=== PATIENT | male | born 1950 | race Hispanic/Latino ===

== ENCOUNTER 2021-08-07 06:51 | Day surgery (SDC) | payer OTHER ==
[2021-08-05 14:12] LABS: BASOPHILS % (AUTO) 0.8 % (0.0-5.0); EOSINOPHILS % (AUTO) 2.5 % (0.0-8.0); HEMATOCRIT 39.2 % (42-54); LYMPHOCYTES % (AUTO) 24.1 % (21.0-51.0); MEAN CORPUSCULAR HEMOGLOBIN 30.2 pg (27.0-33.0); MEAN CORPUSCULAR HGB CONC 33.4 g/dL (32.0-36.0); MEAN CORPUSCULAR VOLUME 90.3 fL (79-99); MONOCYTES % (AUTO) 6.7 % (3.0-13.0); NEUTROPHILS % (AUTO) 64.9 % (40.0-77.0); PLATELET COUNT (AUTO) 198 K/uL (130-400); RED BLOOD CELL COUNT(AUTO) 4.34 MIL/uL (4.50-6.20); RED CELL DISTRIBUTION WIDTH 13.5 % (11.0-15.5)
[2021-08-05 14:18] LABS: CREATININE 1.2 mg/dL (0.5-1.5); POTASSIUM 5.2 mmol/L (3.5-5.1)
[2021-08-05 14:21] LABS: INR 0.99 (0.85-1.15); PROTHROMBIN TIME 10.8 SEC (9.6-11.6)
[2021-08-05 14:23] LABS: APPEARANCE,URINE Clear (CLEAR); BILIRUBIN,URINE Negative (NEGATIVE); COLOR,URINE Yellow (YELLOW); GLUCOSE, URINE (UA) 500 mg/dL (NEGATIVE); KETONES,URINE Negative (NEGATIVE); LEUKOCYTE ESTERASE ,URINE Negative (NEGATIVE); NITRATE,URINE Negative (NEGATIVE); OCCULT BLOOD,URINE Negative (NEGATIVE); PH,URINE 5.5 (5.0-8.0); PROTEIN,URINE Negative (NEGATIVE); UROBILINOGEN,URINE 0.2 mg/dL (0.2-1.0)
[2021-08-05 14:23] LABS: PARTIAL THROMBOPLASTIN TIME 26.1 SEC (26.3-35.5)
[2021-08-05 14:31] LABS: BACTERIA,URINE Rare /HPF (None Seen); RBC,URINE 0-1 /HPF (0-1); SQUAMOUS EPITHELIAL CELL,UR Rare /HPF (0-2); WBC,URINE 0-1 /HPF (0-1)
[2021-08-05 14:41] LABS: B-TYPE NATRIURETIC PEPTIDE 7 pg/mL (0-100)
[~2021-08-07] VITALS: Ht 167.6 cm; Wt 82.6 kg
[2021-08-07] VITALS (8 sets, daily range): BP systolic 146–170; BP diastolic 75–84
[~2021-08-07 06:51] MED LIST: 0.9% NACL 500ML IV.SOLN 500 ML IV SCH; ASPI-1443 PO; ATOR-2 PO; CILO100T PO; GLIP5TAB11 PO; LEVE500T19 PO; LINA5TAB PO; LOSA100T58 PO; METO100T14 PO
[2021-08-07] MEDS ORDERED: 0.9%NACL 1000ML 1,000 ML IV ONE (07:58)
[2021-08-07] MEDS ORDERED: NICARDIPINE 25MG INJ IV ONE (09:08)
[2021-08-07] MEDS ORDERED: MIDAZOLAM HCL 1 MG/ML 2ML VIAL ONE (09:09)
[2021-08-07] MEDS ORDERED: FENTANYL CITRATE PF 50 MCG/1 ML 2ML VIAL ONE (09:09)
[2021-08-07] MEDS ORDERED: NITROGLYCERIN 50MG VIAL ONE (09:09)
[2021-08-07] MEDS ORDERED: IODIXANOL 320 MG/ML 100 ML VIAL ONE (09:11)
[2021-08-07] MEDS ORDERED: HEPARIN 10,000 UNIT/10ML (1,000 UNIT/ML) VIAL ONE (09:18)
[2021-08-07] MEDS ORDERED: DEXTROSE 50%-WATER 50 ML DISP.SYRIN IV PRN (10:30)
[2021-08-07] MEDS ORDERED: GLUCAGON 1MG KIT 1 MG ML IM PRN (10:30)
[2021-08-07] MEDS ORDERED: IOHEXOL 350 MG/ML 100ML INFUS..BTL IV ONE (12:00)
[2021-08-07] MEDS ORDERED: IOHEXOL-350 50ML VIAL IV ONE (12:01)
== END 2021-08-07 14:40 | disposition home or self-care (01) ==
LOC: DAH 06:51
PROVIDERS: ATTEND Internal Medicine Cardiovascular Disease
DX: I70.238 Atherosclerosis of native arteries of right leg with ulceration of other part of lower leg (principal); E11.51 Type 2 diabetes mellitus with diabetic peripheral angiopathy without gangrene; I70.92 Chronic total occlusion of artery of the extremities; I10 Essential (primary) hypertension; E78.5 Hyperlipidemia, unspecified; G40.909 Epilepsy, unspecified, not intractable, without status epilepticus; Z79.01 Long term (current) use of anticoagulants; Z79.899 Other long term (current) drug therapy; Z98.890 Other specified postprocedural states; Z82.49 Family history of ischemic heart disease and other diseases of the circulatory system; Z98.49 Cataract extraction status, unspecified eye
CPT/HCPCS: 36140; 36415; 71045; 75635; 75710; 80048; 81001; 82948 ×2; 83880; 85025; 85610; 85730; 93005; A4215; A4216; A4221; A4222; A4223 ×3; A4606; A4663; C1769; C1894 ×2; J1644; J2250; J3010; J3490 ×2; J7030; Q9967 ×3; 99156; 99157

== ENCOUNTER 2021-08-25 05:30 | Day surgery (SDC) | payer OTHER ==
[2021-08-21 11:25] VITALS: BP 150/70
[2021-08-21 11:34] LABS: BASOPHILS % (AUTO) 0.9 % (0.0-5.0); EOSINOPHILS % (AUTO) 2.4 % (0.0-8.0); HEMATOCRIT 37.5 % (42-54); LYMPHOCYTES % (AUTO) 18.9 % (21.0-51.0); MEAN CORPUSCULAR HEMOGLOBIN 30.4 pg (27.0-33.0); MEAN CORPUSCULAR HGB CONC 33.3 g/dL (32.0-36.0); MEAN CORPUSCULAR VOLUME 91.2 fL (79-99); MONOCYTES % (AUTO) 6.9 % (3.0-13.0); NEUTROPHILS % (AUTO) 69.9 % (40.0-77.0); PLATELET COUNT (AUTO) 223 K/uL (130-400); RED BLOOD CELL COUNT(AUTO) 4.11 MIL/uL (4.50-6.20); RED CELL DISTRIBUTION WIDTH 13.9 % (11.0-15.5); WHITE BLOOD COUNT (AUTO) 8.9 K/uL (4.8-10.8)
[2021-08-21 11:41] LABS: CREATININE 1.3 mg/dL (0.5-1.5); POTASSIUM 4.8 mmol/L (3.5-5.1)
[2021-08-21 11:43] LABS: INR 0.97 (0.85-1.15); PROTHROMBIN TIME 10.6 SEC (9.6-11.6)
[2021-08-21 11:45] LABS: PARTIAL THROMBOPLASTIN TIME 26.8 SEC (26.3-35.5)
[2021-08-21 12:01] LABS: APPEARANCE,URINE CLEAR (CLEAR); BILIRUBIN,URINE NEGATIVE (NEGATIVE); COLOR,URINE YELLOW (YELLOW); GLUCOSE, URINE (UA) NEGATIVE (NEGATIVE); KETONES,URINE 5 mg/dL (NEGATIVE); LEUKOCYTE ESTERASE ,URINE NEGATIVE (NEGATIVE); NITRATE,URINE NEGATIVE (NEGATIVE); OCCULT BLOOD,URINE NEGATIVE (NEGATIVE); PROTEIN,URINE TRACE mg/dL (NEGATIVE); UROBILINOGEN,URINE 0.2 mg/dL (0.2-1.0)
[2021-08-21 12:05] LABS: B-TYPE NATRIURETIC PEPTIDE 19 pg/mL (0-100)
[2021-08-21 12:17] LABS: BACTERIA,URINE Few /HPF (None Seen); RBC,URINE 0-1 /HPF (0-1); WBC,URINE 0-1 /HPF (0-1)
[~2021-08-25] VITALS: Ht 167.6 cm; Wt 83.4 kg
[2021-08-25] VITALS (20 sets, daily range): BP systolic 117–164; BP diastolic 54–89
[2021-08-25] MEDS ORDERED: 0.9%NACL 1000ML 1,000 ML IV ONE (06:39)
[2021-08-25] MEDS ORDERED: NITROGLYCERIN 50MG VIAL ONE (07:12)
[2021-08-25] MEDS ORDERED: IODIXANOL 320 MG/ML 100 ML VIAL ONE (07:12)
[2021-08-25] MEDS ORDERED: HEPARIN 10,000 UNIT/10ML (1,000 UNIT/ML) VIAL ONE ×2 (07:12→09:35)
[2021-08-25] MEDS ORDERED: LIDOCAINE HCL 400MG/20ML VIAL ONE ×2 (07:13→08:05)
[2021-08-25] MEDS ORDERED: MIDAZOLAM HCL 1 MG/ML 2ML VIAL ONE ×2 (07:24→09:57)
[2021-08-25] MEDS ORDERED: FENTANYL CITRATE PF 50 MCG/1 ML 2ML VIAL ONE (07:24)
[2021-08-25] MEDS ORDERED: CLOPIDOGREL 300MG TAB ONE (08:31)
[2021-08-25] MEDS ORDERED: NICARDIPINE 25MG INJ IV ONE ×2 (08:41→08:46)
[2021-08-25] MEDS ORDERED: ADENOSINE 90MG VIAL IV ONE (10:13)
[2021-08-25] MEDS ORDERED: ADENOSINE 6MG VIAL IV ONE (10:14)
[2021-08-25] MEDS ORDERED: DEXTROSE 50%-WATER 50 ML DISP.SYRIN IV PRN (11:00)
[2021-08-25] MEDS ORDERED: 0.9%NACL 1000ML 1,000 ML IV SCH (11:00)
[2021-08-25] MEDS ORDERED: GLUCAGON 1MG KIT 1 MG ML IM PRN (11:00)
== END 2021-08-25 16:55 | disposition home or self-care (01) ==
LOC: DAH 05:30
PROVIDERS: ATTEND Internal Medicine Cardiovascular Disease
DX: I70.238 Atherosclerosis of native arteries of right leg with ulceration of other part of lower leg (principal); E11.51 Type 2 diabetes mellitus with diabetic peripheral angiopathy without gangrene; I10 Essential (primary) hypertension; E78.5 Hyperlipidemia, unspecified; G40.909 Epilepsy, unspecified, not intractable, without status epilepticus; Z82.49 Family history of ischemic heart disease and other diseases of the circulatory system; Z98.49 Cataract extraction status, unspecified eye; Z79.899 Other long term (current) drug therapy; Z79.82 Long term (current) use of aspirin; Z79.01 Long term (current) use of anticoagulants; Z98.890 Other specified postprocedural states
CPT/HCPCS: 36415; 71045; 75710; 80048; 81001; 82948 ×2; 83880; 85025; 85610; 85730; 93005; A4215; A4216; A4221; A4222; A4223 ×3; A4606; A4663; C1724 ×2; C1725; C1727 ×2; C1760; C1769 ×3; C1887; C1894 ×3; C9766; C9774; J0153; J1644 ×5; J2250 ×2; J3010; J3490 ×5; J7030; Q9967; 99156; 99157; C9767

== ENCOUNTER 2021-09-14 18:41 | Inpatient (IN) | payer OTHER ==
[~2021-09-14] VITALS: Ht 167.6 cm; Wt 86.1 kg
[~2021-09-14 18:41] MED LIST changes: -0.9% NACL 500ML IV.SOLN 500 ML IV SCH; -ASPI-1443 PO
[2021-09-14 19:17] LABS: BASOPHILS % (AUTO) 0.1 % (0.0-5.0); HEMATOCRIT 29.6 % (42-54); LYMPHOCYTES % (AUTO) 3.2 % (21.0-51.0); MEAN CORPUSCULAR HEMOGLOBIN 30.3 pg (27.0-33.0); MEAN CORPUSCULAR HGB CONC 34.5 g/dL (32.0-36.0); MEAN CORPUSCULAR VOLUME 87.8 fL (79-99); MONOCYTES % (AUTO) 5.1 % (3.0-13.0); NEUTROPHILS % (AUTO) 89.9 % (40.0-77.0); PLATELET COUNT (AUTO) 438 K/uL (130-400); RED BLOOD CELL COUNT(AUTO) 3.37 MIL/uL (4.50-6.20); RED CELL DISTRIBUTION WIDTH 12.7 % (11.0-15.5); WHITE BLOOD COUNT (AUTO) 20.9 K/uL (4.8-10.8)
[2021-09-14 19:26] LABS: CREATININE 3.9 mg/dL (0.5-1.5); POTASSIUM 3.8 mmol/L (3.5-5.1)
[2021-09-14 19:31] LABS: ALBUMIN 2.6 g/dL (3.5-5.0); TOTAL PROTEIN, SERUM 7.7 g/dL (6.0-8.3)
[2021-09-14 21:20] LABS: APPEARANCE,URINE SL CLOUDY (CLEAR); BILIRUBIN,URINE SMALL (NEGATIVE); COLOR,URINE AMBER (YELLOW); GLUCOSE, URINE (UA) 100 mg/dL (NEGATIVE); KETONES,URINE NEGATIVE (NEGATIVE); LEUKOCYTE ESTERASE ,URINE NEGATIVE (NEGATIVE); NITRATE,URINE NEGATIVE (NEGATIVE); OCCULT BLOOD,URINE NEGATIVE (NEGATIVE); PROTEIN,URINE 30 mg/dL (NEGATIVE); UROBILINOGEN,URINE 0.2 mg/dL (0.2-1.0)
[2021-09-14 21:29] LABS: BACTERIA,URINE None Seen /HPF (None Seen); RBC,URINE None Seen /HPF (0-1); WBC,URINE 0-1 /HPF (0-1)
[2021-09-14 21:30] LABS: AMORPHOUS SEDIMENT,UR Few /LPF (None Seen); SQUAMOUS EPITHELIAL CELL,UR Rare /HPF (0-2)
[2021-09-14 22:27] LABS: INR 1.01 (0.85-1.15)
[2021-09-14 22:29] LABS: PARTIAL THROMBOPLASTIN TIME 27.6 SEC (26.3-35.5)
[2021-09-14] MEDS ORDERED: GUAIFENESIN-DM 200/20 MG 10 ML PO PRN (22:30)
[2021-09-14] MEDS ORDERED: ACETAMINOPHEN 325 MG TAB PO PRN ×2 (22:30)
[2021-09-14] MEDS ORDERED: MAG/ALUM/SIMETH 30 ML UDCUP PO PRN (22:30)
[2021-09-14] MEDS ORDERED: ONDANSETRON 4MG INJ IV PRN (22:30)
[2021-09-14] MEDS ORDERED: ACETAMINOPHEN WITH CODEINE 1 TAB TAB PO PRN (22:30)
[2021-09-14 22:55] LABS: CREATININE 3.4 mg/dL (0.5-1.5); POTASSIUM 3.5 mmol/L (3.5-5.1)
[2021-09-14] MEDS ORDERED: DEXTROSE 50%-WATER 50 ML DISP.SYRIN IV PRN (23:30)
[2021-09-14] MEDS ORDERED: GLUCAGON 1MG KIT 1 MG ML IM PRN (23:30)
[2021-09-14] MEDS: 0.9%NACL 1000ML 1,000 ML IV SCH (23:31)
[2021-09-14 23:52] LABS: CHLORIDE,URINE RANDOM 40 mmol/L (110-250); POTASSIUM,URINE RANDOM 74 mmol/L (25-125); SODIUM,URINE RANDOM 32 mmol/l (40-220)
[2021-09-15] MEDS: 0.9%NACL 1000ML 1,000 ML IV SCH ×11 (00:01→14:35)
[2021-09-15] MEDS: HEPARIN 5,000 UNIT VIAL SQ SCH ×4 (00:01→21:13)
[2021-09-15] MEDS: LEVETIRACETAM 500 MG TABLET PO SCH ×2 (00:01→21:06)
[2021-09-15] MEDS: INSULIN HUMULIN R 100 UNIT/ML 3ML SQ SCH ×5 (01:00→21:14)
[2021-09-15] MEDS: ZOSYN 3.375GM +NS 50ML IV SCH ×2 (01:00→11:14)
[2021-09-15 01:33] LABS: ABG BASE EXCESS -3.6 mmol/L (-2.0-3.0); ABG HCO3 19.1 mmol/L (21.0-28.0); ABG PCO2 29 mmHg (35-48)
[2021-09-15 04:06] VITALS: BP 129/69
[2021-09-15 04:17] LABS: BASOPHILS % (AUTO) 0.1 % (0.0-5.0); HEMATOCRIT 28.4 % (42-54); LYMPHOCYTES % (AUTO) 4.7 % (21.0-51.0); MEAN CORPUSCULAR HEMOGLOBIN 30.6 pg (27.0-33.0); MEAN CORPUSCULAR HGB CONC 35.2 g/dL (32.0-36.0); MEAN CORPUSCULAR VOLUME 86.9 fL (79-99); MONOCYTES % (AUTO) 7.6 % (3.0-13.0); NEUTROPHILS % (AUTO) 86.6 % (40.0-77.0); PLATELET COUNT (AUTO) 429 K/uL (130-400); RED BLOOD CELL COUNT(AUTO) 3.27 MIL/uL (4.50-6.20); RED CELL DISTRIBUTION WIDTH 12.5 % (11.0-15.5)
[2021-09-15 04:25] LABS: CREATININE 2.7 mg/dL (0.5-1.5); POTASSIUM 3.3 mmol/L (3.5-5.1)
[2021-09-15] MEDS: KCL 20 MEQ ERTAB PO PRN (06:34)
[2021-09-15] MEDS ORDERED: CLOP75TA32 PO (07:43)
[2021-09-15 08:00] VITALS: BP 109/67
[2021-09-15] MEDS: FAMOTIDINE 20MG VIAL IV SCH (08:17)
[2021-09-15] MEDS ORDERED: HEPARIN 5,000 UNIT VIAL SQ SCH (09:00)
[2021-09-15 11:02] LABS: CREATININE 2.4 mg/dL (0.5-1.5)
[2021-09-15 11:55] VITALS: BP 137/75
[2021-09-15 15:45] VITALS: BP 115/53
[2021-09-15 21:03] VITALS: BP 148/81
[2021-09-15] MEDS: METOPROLOL TARTRATE 50 MG TAB PO SCH (21:06)
[2021-09-15] MEDS: CILOSTAZOL 100 MG TAB PO SCH (21:06)
[2021-09-15 23:54] VITALS: BP 144/59
[2021-09-16] MEDS: ZOSYN 3.375GM +NS 50ML IV SCH ×3 (00:09→23:59)
[2021-09-16 04:14] LABS: HEMATOCRIT 26.1 % (42-54); MEAN CORPUSCULAR HEMOGLOBIN 29.7 pg (27.0-33.0); MEAN CORPUSCULAR HGB CONC 34.1 g/dL (32.0-36.0); RED CELL DISTRIBUTION WIDTH 12.5 % (11.0-15.5); WHITE BLOOD COUNT (AUTO) 16.6 K/uL (4.8-10.8)
[2021-09-16 04:26] LABS: CREATININE 1.4 mg/dL (0.5-1.5); POTASSIUM 3.5 mmol/L (3.5-5.1)
[2021-09-16 04:55] VITALS: BP 127/69
[2021-09-16] MEDS: KCL 20 MEQ ERTAB PO PRN ×2 (05:11→06:53)
[2021-09-16] MEDS: INSULIN HUMULIN R 100 UNIT/ML 3ML SQ SCH ×4 (05:29→21:00)
[2021-09-16 08:00] VITALS: BP 120/58
[2021-09-16] MEDS: METOPROLOL TARTRATE 50 MG TAB PO SCH ×2 (10:24→21:37)
[2021-09-16] MEDS: CILOSTAZOL 100 MG TAB PO SCH ×2 (10:27→21:37)
[2021-09-16] MEDS: FAMOTIDINE 20MG VIAL IV SCH (10:27)
[2021-09-16] MEDS: ATORVASTATIN 40 MG TABLET PO SCH (10:27)
[2021-09-16] MEDS: HEPARIN 5,000 UNIT VIAL SQ SCH ×3 (10:34→21:37)
[2021-09-16 11:34] VITALS: BP 178/88
[2021-09-16 16:00] VITALS: BP 164/83
[2021-09-16] MEDS: LOSARTAN 100 MG TABLET PO SCH (17:46)
[2021-09-16 20:00] VITALS: BP 128/51
[2021-09-16] MEDS: 0.9%NACL 1000ML 1,000 ML IV SCH (21:36)
[2021-09-16] MEDS: LEVETIRACETAM 500 MG TABLET PO SCH (21:37)
[2021-09-17] VITALS: BP 131/97
[2021-09-17] MEDS: KCL 20 MEQ ERTAB PO PRN (00:03)
[2021-09-17] MEDS: 0.9%NACL 1000ML 1,000 ML IV SCH ×2 (00:30→21:14)
[2021-09-17 04:00] VITALS: BP 149/83
[2021-09-17 04:31] LABS: HEMATOCRIT 26.1 % (42-54); MEAN CORPUSCULAR HEMOGLOBIN 30.2 pg (27.0-33.0); MEAN CORPUSCULAR HGB CONC 34.1 g/dL (32.0-36.0); MEAN CORPUSCULAR VOLUME 88.5 fL (79-99); RED BLOOD CELL COUNT(AUTO) 2.95 MIL/uL (4.50-6.20); RED CELL DISTRIBUTION WIDTH 12.5 % (11.0-15.5); WHITE BLOOD COUNT (AUTO) 17.6 K/uL (4.8-10.8)
[2021-09-17 04:45] LABS: CREATININE 1.3 mg/dL (0.5-1.5); POTASSIUM 3.7 mmol/L (3.5-5.1)
[2021-09-17] MEDS: INSULIN HUMULIN R 100 UNIT/ML 3ML SQ SCH ×4 (06:14→21:00)
[2021-09-17 07:50] VITALS: BP 144/81
[2021-09-17] MEDS: METOPROLOL TARTRATE 50 MG TAB PO SCH ×2 (08:38→21:14)
[2021-09-17] MEDS: ATORVASTATIN 40 MG TABLET PO SCH (08:38)
[2021-09-17] MEDS: FAMOTIDINE 20MG VIAL IV SCH (08:38)
[2021-09-17] MEDS: CILOSTAZOL 100 MG TAB PO SCH (08:38)
[2021-09-17] MEDS: HEPARIN 5,000 UNIT VIAL SQ SCH ×3 (08:39→21:00)
[2021-09-17 11:04] VITALS: BP 124/53
[2021-09-17] MEDS: ZOSYN 3.375GM +NS 50ML IV SCH ×2 (11:42→21:14)
[2021-09-17 16:00] VITALS: BP 135/67
[2021-09-17] MEDS: LOSARTAN 100 MG TABLET PO SCH (17:27)
[2021-09-17 20:00] VITALS: BP 167/98
[2021-09-17] MEDS ORDERED: LEVETIRACETAM 500 MG TABLET PO SCH (21:00)
[2021-09-17] MEDS: LEVETIRACETAM 500 MG TABLET PO SCH (21:14)
[2021-09-18] VITALS (33 sets, daily range): BP systolic 98–187; BP diastolic 46–108
[2021-09-18 05:05] LABS: BASOPHILS % (AUTO) 0.2 % (0.0-5.0); EOSINOPHILS % (AUTO) 0.3 % (0.0-8.0); HEMATOCRIT 26.7 % (42-54); LYMPHOCYTES % (AUTO) 6.8 % (21.0-51.0); MEAN CORPUSCULAR HEMOGLOBIN 29.3 pg (27.0-33.0); MEAN CORPUSCULAR HGB CONC 34.1 g/dL (32.0-36.0); MEAN CORPUSCULAR VOLUME 85.9 fL (79-99); MONOCYTES % (AUTO) 7.5 % (3.0-13.0); NEUTROPHILS % (AUTO) 80.8 % (40.0-77.0); PLATELET COUNT (AUTO) 402 K/uL (130-400); RED BLOOD CELL COUNT(AUTO) 3.11 MIL/uL (4.50-6.20); RED CELL DISTRIBUTION WIDTH 12.5 % (11.0-15.5)
[2021-09-18 05:18] LABS: CREATININE 1.1 mg/dL (0.5-1.5); POTASSIUM 3.3 mmol/L (3.5-5.1)
[2021-09-18] MEDS: INSULIN HUMULIN R 100 UNIT/ML 3ML SQ SCH ×4 (05:28→21:00)
[2021-09-18] MEDS: METOPROLOL TARTRATE 50 MG TAB PO SCH ×2 (06:05→19:52)
[2021-09-18] MEDS: 0.9%NACL 1000ML 1,000 ML IV SCH (06:06)
[2021-09-18] MEDS: CLOPIDOGREL 75MG TAB PO SCH (08:53)
[2021-09-18] MEDS: LINAGLIPTIN 5 MG TABLET PO SCH (08:54)
[2021-09-18] MEDS: HEPARIN 5,000 UNIT VIAL SQ SCH ×3 (08:54→19:53)
[2021-09-18] MEDS: FAMOTIDINE 20MG VIAL IV SCH (09:20)
[2021-09-18] MEDS: LOSARTAN 100 MG TABLET PO SCH (09:20)
[2021-09-18] MEDS: KCL 20 MEQ ERTAB PO PRN ×3 (09:21→22:40)
[2021-09-18] MEDS: ATORVASTATIN 40 MG TABLET PO SCH (09:21)
[2021-09-18] MEDS: ZOSYN 3.375GM +NS 50ML IV SCH ×2 (11:23→23:35)
[2021-09-18] MEDS ORDERED: DEXAMETHASONE SOD PHOSPHATE 10MG/ML 1ML VIAL ONE (13:26)
[2021-09-18] MEDS ORDERED: SUCCINYLCHOLINE 200MG/10ML SYR ONE (13:26)
[2021-09-18] MEDS ORDERED: GLYCOPYRROLATE 1 MG/5 ML SYRINGE ONE (13:27)
[2021-09-18] MEDS ORDERED: NEOSTIGMINE 5MG/5ML SYR IV ONE (13:27)
[2021-09-18] MEDS ORDERED: ONDANSETRON 4MG INJ ONE (13:27)
[2021-09-18] MEDS ORDERED: PROPOFOL 10 MG/ML 20ML VIAL IV ONE (13:27)
[2021-09-18] MEDS ORDERED: MIDAZOLAM HCL 1 MG/ML 2ML VIAL ONE ×2 (13:27→15:45)
[2021-09-18] MEDS ORDERED: EPHEDRINE SULFATE 50 MG/ML AMPULE ONE (13:28)
[2021-09-18] MEDS ORDERED: ROCURONIUM 10MG/1ML SYR 10 MG/ML ML ONE (13:28)
[2021-09-18] MEDS ORDERED: FENTANYL CITRATE PF 50 MCG/1 ML 2ML VIAL ONE ×2 (13:28→15:28)
[2021-09-18] MEDS ORDERED: ALBUMIN (HUMAN) 5% 250 ML IV ONE (13:31)
[2021-09-18] MEDS ORDERED: KETAMINE 50MG/ML SYRINGE 50 MG/ML DISP.SYRIN IV ONE (13:32)
[2021-09-18] MEDS ORDERED: ESMOLOL HCL 10 MG/ML 10 ML VIAL ONE (14:58)
[2021-09-18] MEDS ORDERED: MORPHINE 2 MG SYG ONE (16:00)
[2021-09-18 16:09] LABS: HEMATOCRIT 26.5 % (42-54)
[2021-09-18] MEDS: LEVETIRACETAM 500 MG TABLET PO SCH (19:53)
[2021-09-19] MEDS: ACETAMINOPHEN WITH CODEINE 1 TAB TAB PO PRN (01:48)
[2021-09-19 04:10] VITALS: BP 161/92
[2021-09-19 05:00] LABS: HEMATOCRIT 27.5 % (42-54); MEAN CORPUSCULAR HEMOGLOBIN 29.4 pg (27.0-33.0); MEAN CORPUSCULAR HGB CONC 33.5 g/dL (32.0-36.0); MEAN CORPUSCULAR VOLUME 87.9 fL (79-99); RED BLOOD CELL COUNT(AUTO) 3.13 MIL/uL (4.50-6.20); RED CELL DISTRIBUTION WIDTH 12.7 % (11.0-15.5); WHITE BLOOD COUNT (AUTO) 16.3 K/uL (4.8-10.8)
[2021-09-19 05:27] LABS: CREATININE 1.1 mg/dL (0.5-1.5)
[2021-09-19] MEDS: INSULIN HUMULIN R 100 UNIT/ML 3ML SQ SCH ×4 (06:33→20:52)
[2021-09-19 08:00] VITALS: BP 179/97
[2021-09-19] MEDS: LINAGLIPTIN 5 MG TABLET PO SCH (09:02)
[2021-09-19] MEDS: CLOPIDOGREL 75MG TAB PO SCH (09:03)
[2021-09-19] MEDS: FAMOTIDINE 20MG VIAL IV SCH (09:03)
[2021-09-19] MEDS: METOPROLOL TARTRATE 50 MG TAB PO SCH ×2 (09:03→20:12)
[2021-09-19] MEDS: ATORVASTATIN 40 MG TABLET PO SCH (09:03)
[2021-09-19] MEDS: HEPARIN 5,000 UNIT VIAL SQ SCH ×3 (09:04→20:18)
[2021-09-19 11:42] VITALS: BP 153/93
[2021-09-19] MEDS: ZOSYN 3.375GM +NS 50ML IV SCH (11:45)
[2021-09-19] MEDS: MORPHINE 4 MG SYG IM PRN (12:55)
[2021-09-19 16:00] VITALS: BP 173/82
[2021-09-19] MEDS: HYDRALAZINE 20MG/ML VIAL IV PRN (16:09)
[2021-09-19] MEDS: LOSARTAN 100 MG TABLET PO SCH (16:56)
[2021-09-19] MEDS: DiphenhydrAMINE HCL 50 MG/ML VIAL IV PRN (18:27)
[2021-09-19 19:55] VITALS: BP 170/84
[2021-09-19] MEDS: LEVETIRACETAM 500 MG TABLET PO SCH (20:11)
[2021-09-19] MEDS: CILOSTAZOL 100 MG TAB PO SCH (20:48)
[2021-09-19] MEDS: 0.9%NACL 1000ML 1,000 ML IV SCH (20:52)
[2021-09-19 23:25] VITALS: BP 163/86
[2021-09-20] MEDS: ZOSYN 3.375GM +NS 50ML IV SCH ×3 (00:16→23:48)
[2021-09-20] MEDS: DiphenhydrAMINE HCL 50 MG/ML VIAL IV PRN (01:46)
[2021-09-20 04:00] VITALS: BP 166/94
[2021-09-20 04:14] LABS: BASOPHILS % (AUTO) 0.3 % (0.0-5.0); EOSINOPHILS % (AUTO) 0.1 % (0.0-8.0); HEMATOCRIT 26.7 % (42-54); LYMPHOCYTES % (AUTO) 8.7 % (21.0-51.0); MEAN CORPUSCULAR HEMOGLOBIN 29.7 pg (27.0-33.0); MEAN CORPUSCULAR HGB CONC 34.1 g/dL (32.0-36.0); MEAN CORPUSCULAR VOLUME 87.3 fL (79-99); MONOCYTES % (AUTO) 6.5 % (3.0-13.0); NEUTROPHILS % (AUTO) 80.2 % (40.0-77.0); PLATELET COUNT (AUTO) 464 K/uL (130-400); RED BLOOD CELL COUNT(AUTO) 3.06 MIL/uL (4.50-6.20); RED CELL DISTRIBUTION WIDTH 12.8 % (11.0-15.5); WHITE BLOOD COUNT (AUTO) 14.4 K/uL (4.8-10.8)
[2021-09-20 04:21] LABS: CREATININE 0.9 mg/dL (0.5-1.5); POTASSIUM 3.4 mmol/L (3.5-5.1)
[2021-09-20] MEDS: KCL 20 MEQ ERTAB PO PRN ×3 (05:18→23:51)
[2021-09-20] MEDS: HYDRALAZINE 20MG/ML VIAL IV PRN ×2 (05:18→17:39)
[2021-09-20] MEDS: INSULIN HUMULIN R 100 UNIT/ML 3ML SQ SCH ×4 (05:52→20:40)
[2021-09-20 08:00] VITALS: BP 153/91
[2021-09-20] MEDS: ATORVASTATIN 40 MG TABLET PO SCH (09:51)
[2021-09-20] MEDS: FAMOTIDINE 20MG VIAL IV SCH (09:51)
[2021-09-20] MEDS: LINAGLIPTIN 5 MG TABLET PO SCH (09:51)
[2021-09-20] MEDS: METOPROLOL TARTRATE 50 MG TAB PO SCH ×2 (09:51→20:41)
[2021-09-20] MEDS: CLOPIDOGREL 75MG TAB PO SCH (09:51)
[2021-09-20] MEDS: HEPARIN 5,000 UNIT VIAL SQ SCH ×3 (09:52→20:42)
[2021-09-20] MEDS ORDERED: CILOSTAZOL 100 MG TAB ONE (09:55)
[2021-09-20] MEDS: CILOSTAZOL 100 MG TAB PO SCH ×2 (09:56→20:54)
[2021-09-20 12:00] VITALS: BP 156/88
[2021-09-20] MEDS: 0.9%NACL 1000ML 1,000 ML IV SCH (12:04)
[2021-09-20 16:00] VITALS: BP 168/93
[2021-09-20] MEDS: LOSARTAN 100 MG TABLET PO SCH (17:20)
[2021-09-20] MEDS: MORPHINE 4 MG SYG IM PRN (17:29)
[2021-09-20 20:00] VITALS: BP 116/59
[2021-09-20] MEDS: LEVETIRACETAM 500 MG TABLET PO SCH (20:41)
[2021-09-20] MEDS: ACETAMINOPHEN WITH CODEINE 1 TAB TAB PO PRN (21:00)
[2021-09-21] VITALS (7 sets, daily range): BP systolic 135–167; BP diastolic 70–93
[2021-09-21] MEDS: ACETAMINOPHEN WITH CODEINE 1 TAB TAB PO PRN ×3 (03:12→20:13)
[2021-09-21] MEDS: KCL 20 MEQ ERTAB PO PRN ×4 (03:12→16:57)
[2021-09-21 04:15] LABS: BASOPHILS % (AUTO) 0.4 % (0.0-5.0); LYMPHOCYTES % (AUTO) 11.4 % (21.0-51.0); MEAN CORPUSCULAR HEMOGLOBIN 29.2 pg (27.0-33.0); MEAN CORPUSCULAR HGB CONC 33.6 g/dL (32.0-36.0); MEAN CORPUSCULAR VOLUME 86.8 fL (79-99); MONOCYTES % (AUTO) 5.9 % (3.0-13.0); NEUTROPHILS % (AUTO) 76.6 % (40.0-77.0); PLATELET COUNT (AUTO) 424 K/uL (130-400); RED BLOOD CELL COUNT(AUTO) 2.88 MIL/uL (4.50-6.20)
[2021-09-21 04:23] LABS: CREATININE 0.9 mg/dL (0.5-1.5); POTASSIUM 3.5 mmol/L (3.5-5.1)
[2021-09-21] MEDS: INSULIN HUMULIN R 100 UNIT/ML 3ML SQ SCH ×4 (05:40→22:02)
[2021-09-21] MEDS: 0.9%NACL 1000ML 1,000 ML IV SCH ×2 (05:40→22:03)
[2021-09-21] MEDS: FAMOTIDINE 20MG VIAL IV SCH (10:16)
[2021-09-21] MEDS: LINAGLIPTIN 5 MG TABLET PO SCH (10:16)
[2021-09-21] MEDS: CILOSTAZOL 100 MG TAB PO SCH ×2 (10:17→22:06)
[2021-09-21] MEDS: ATORVASTATIN 40 MG TABLET PO SCH (10:17)
[2021-09-21] MEDS: METOPROLOL TARTRATE 50 MG TAB PO SCH ×2 (10:17→22:03)
[2021-09-21] MEDS: CLOPIDOGREL 75MG TAB PO SCH (10:17)
[2021-09-21] MEDS: HEPARIN 5,000 UNIT VIAL SQ SCH ×3 (10:25→22:04)
[2021-09-21] MEDS: ZOSYN 3.375GM +NS 50ML IV SCH (12:07)
[2021-09-21] MEDS: LOSARTAN 100 MG TABLET PO SCH (16:57)
[2021-09-21] MEDS: LACTULOSE 20 GM/30 ML UDCUP PO PRN (17:21)
[2021-09-21] MEDS: LEVETIRACETAM 500 MG TABLET PO SCH (22:03)
[2021-09-22] MEDS: ZOSYN 3.375GM +NS 50ML IV SCH ×2 (00:17→11:47)
[2021-09-22 04:18] VITALS: BP 133/93
[2021-09-22 05:02] LABS: HEMATOCRIT 27.7 % (42-54); MEAN CORPUSCULAR HGB CONC 33.2 g/dL (32.0-36.0); MEAN CORPUSCULAR VOLUME 87.4 fL (79-99); RED BLOOD CELL COUNT(AUTO) 3.17 MIL/uL (4.50-6.20); RED CELL DISTRIBUTION WIDTH 12.9 % (11.0-15.5); WHITE BLOOD COUNT (AUTO) 16.2 K/uL (4.8-10.8)
[2021-09-22] MEDS: INSULIN HUMULIN R 100 UNIT/ML 3ML SQ SCH ×4 (06:20→20:55)
[2021-09-22 07:00] VITALS: BP 140/81
[2021-09-22] MEDS: ATORVASTATIN 40 MG TABLET PO SCH (08:33)
[2021-09-22] MEDS: LINAGLIPTIN 5 MG TABLET PO SCH (08:33)
[2021-09-22] MEDS: ACETAMINOPHEN WITH CODEINE 1 TAB TAB PO PRN (08:34)
[2021-09-22] MEDS: METOPROLOL TARTRATE 50 MG TAB PO SCH ×2 (08:34→20:53)
[2021-09-22] MEDS: CILOSTAZOL 100 MG TAB PO SCH ×2 (08:35→20:53)
[2021-09-22] MEDS: CLOPIDOGREL 75MG TAB PO SCH (08:35)
[2021-09-22] MEDS: FAMOTIDINE 20MG VIAL IV SCH (08:35)
[2021-09-22] MEDS: HEPARIN 5,000 UNIT VIAL SQ SCH ×3 (08:36→20:54)
[2021-09-22 11:00] VITALS: BP 125/66
[2021-09-22] MEDS: 0.9%NACL 1000ML 1,000 ML IV SCH (15:38)
[2021-09-22 16:00] VITALS: BP 128/66
[2021-09-22] MEDS: LOSARTAN 100 MG TABLET PO SCH (17:14)
[2021-09-22 19:00] VITALS: BP 163/76
[2021-09-22] MEDS: LEVETIRACETAM 500 MG TABLET PO SCH (20:53)
[2021-09-22 23:57] VITALS: BP 159/91
[2021-09-23] MEDS: ZOSYN 3.375GM +NS 50ML IV SCH ×3 (01:05→22:47)
[2021-09-23 04:00] VITALS: BP 184/91
[2021-09-23] MEDS: DiphenhydrAMINE HCL 50 MG/ML VIAL IV PRN (04:28)
[2021-09-23] MEDS: HYDRALAZINE 20MG/ML VIAL IV PRN (04:28)
[2021-09-23] MEDS: 0.9%NACL 1000ML 1,000 ML IV SCH ×2 (05:50→22:47)
[2021-09-23] MEDS: INSULIN HUMULIN R 100 UNIT/ML 3ML SQ SCH ×4 (06:07→22:45)
[2021-09-23 08:00] VITALS: BP 152/78
[2021-09-23] MEDS: ACETAMINOPHEN WITH CODEINE 1 TAB TAB PO PRN (08:53)
[2021-09-23] MEDS: ATORVASTATIN 40 MG TABLET PO SCH (08:54)
[2021-09-23] MEDS: METOPROLOL TARTRATE 50 MG TAB PO SCH ×2 (08:54→22:47)
[2021-09-23] MEDS: CILOSTAZOL 100 MG TAB PO SCH ×2 (08:54→22:46)
[2021-09-23] MEDS: LINAGLIPTIN 5 MG TABLET PO SCH (08:54)
[2021-09-23] MEDS: FAMOTIDINE 20MG VIAL IV SCH (08:55)
[2021-09-23] MEDS: CLOPIDOGREL 75MG TAB PO SCH (08:55)
[2021-09-23] MEDS: HEPARIN 5,000 UNIT VIAL SQ SCH ×3 (09:29→22:44)
[2021-09-23] MEDS: LACTULOSE 20 GM/30 ML UDCUP PO PRN (10:52)
[2021-09-23 12:00] VITALS: BP 151/81
[2021-09-23 13:57] LABS: HEMATOCRIT 24.6 % (42-54); MEAN CORPUSCULAR HEMOGLOBIN 29.6 pg (27.0-33.0); MEAN CORPUSCULAR HGB CONC 34.1 g/dL (32.0-36.0); MEAN CORPUSCULAR VOLUME 86.6 fL (79-99); RED BLOOD CELL COUNT(AUTO) 2.84 MIL/uL (4.50-6.20); WHITE BLOOD COUNT (AUTO) 15.1 K/uL (4.8-10.8)
[2021-09-23 14:15] LABS: CREATININE 0.9 mg/dL (0.5-1.5); POTASSIUM 3.7 mmol/L (3.5-5.1)
[2021-09-23 16:24] VITALS: BP 109/56
[2021-09-23] MEDS: LOSARTAN 100 MG TABLET PO SCH (17:11)
[2021-09-23 19:00] VITALS: BP 173/98
[2021-09-23] MEDS: LEVETIRACETAM 500 MG TABLET PO SCH (22:46)
[2021-09-24] VITALS: BP 165/89
[2021-09-24 04:00] VITALS: BP 161/98
[2021-09-24] MEDS: INSULIN HUMULIN R 100 UNIT/ML 3ML SQ SCH (06:34)
[2021-09-24 07:04] LABS: APPEARANCE,URINE CLEAR (CLEAR); BILIRUBIN,URINE NEGATIVE (NEGATIVE); COLOR,URINE YELLOW (YELLOW); GLUCOSE, URINE (UA) NEGATIVE (NEGATIVE); KETONES,URINE NEGATIVE (NEGATIVE); LEUKOCYTE ESTERASE ,URINE NEGATIVE (NEGATIVE); NITRATE,URINE NEGATIVE (NEGATIVE); OCCULT BLOOD,URINE TRACE-INTACT (NEGATIVE); PH,URINE 6.5 (5.0-8.0); PROTEIN,URINE NEGATIVE (NEGATIVE)
[2021-09-24 07:49] VITALS: BP 151/88
[2021-09-24 07:50] LABS: BACTERIA,URINE Rare /HPF (None Seen); RBC,URINE 0-1 /HPF (0-1); SQUAMOUS EPITHELIAL CELL,UR Rare /HPF (0-2); WBC,URINE 0-1 /HPF (0-1)
[2021-09-24] MEDS: ATORVASTATIN 40 MG TABLET PO SCH (08:46)
[2021-09-24] MEDS: CLOPIDOGREL 75MG TAB PO SCH (08:47)
[2021-09-24] MEDS: CILOSTAZOL 100 MG TAB PO SCH (08:47)
[2021-09-24] MEDS: LINAGLIPTIN 5 MG TABLET PO SCH (08:47)
[2021-09-24] MEDS: HEPARIN 5,000 UNIT VIAL SQ SCH (08:47)
[2021-09-24] MEDS: METOPROLOL TARTRATE 50 MG TAB PO SCH (08:47)
[2021-09-24] MEDS: FAMOTIDINE 20MG VIAL IV SCH (08:47)
== END 2021-09-24 10:36 | DRG 239 ==
LOC: EDH 18:41 → EDHIP 22:08 → 4DH 09-15 04:06 → 4CH 09-15 17:04
PROVIDERS: ADMIT Hospitalist; ATTEND Hospitalist
PROC: 0Y6H0Z3 Detachment at Right Lower Leg, Low, Open Approach (ICD-10-PCS; principal; 2021-09-18 13:38)
DX: E11.52 Type 2 diabetes mellitus with diabetic peripheral angiopathy with gangrene (principal); R65.11 Systemic inflammatory response syndrome (SIRS) of non-infectious origin with acute organ dysfunction; E87.1 Hypo-osmolality and hyponatremia; N17.9 Acute kidney failure, unspecified; I96 Gangrene, not elsewhere classified; N13.9 Obstructive and reflux uropathy, unspecified; R74.01 Elevation of levels of liver transaminase levels; I70.211 Atherosclerosis of native arteries of extremities with intermittent claudication, right leg; E86.0 Dehydration; E11.65 Type 2 diabetes mellitus with hyperglycemia; E78.00 Pure hypercholesterolemia, unspecified; I10 Essential (primary) hypertension; Z20.822 Contact with and (suspected) exposure to COVID-19; G40.909 Epilepsy, unspecified, not intractable, without status epilepticus; Z83.3 Family history of diabetes mellitus; E78.5 Hyperlipidemia, unspecified; E11.621 Type 2 diabetes mellitus with foot ulcer; L97.519 Non-pressure chronic ulcer of other part of right foot with unspecified severity; E11.42 Type 2 diabetes mellitus with diabetic polyneuropathy; F17.200 Nicotine dependence, unspecified, uncomplicated; R33.9 Retention of urine, unspecified
CPT/HCPCS: 36415; 36600; 70450; 71045; 73630; 76770; 80048; 80051; 80053; 81001; 82010; 82140; 82803; 82948; 83605; 83880; 83930; 83935; 84132; 84484; 85014; 85018; 85025; 85027; 85378; 85610; 85730; 86850; 86900; 86901; 86923; 87040; 87635; 87804; 88307; 88311; 93005; 93925; 97039; C9803; G0378; J0330; J1100; J1200; J1644; J1815; J2250; J2270; J2405; J2543; J2704; J2710; J3010; J3490; J7030; P9045

== ENCOUNTER → 2021-10-14 | Outpatient (CLI) | payer OTHER ==
[~2021-10-14] MED LIST changes: +CLOP75TA32 PO; -GLIP5TAB11 PO
== END | disposition home or self-care (01) ==
LOC: WHH 13:29
PROVIDERS: ATTEND Specialist
DX: T87.89 Other complications of amputation stump (principal); I70.211 Atherosclerosis of native arteries of extremities with intermittent claudication, right leg; E11.65 Type 2 diabetes mellitus with hyperglycemia; E11.51 Type 2 diabetes mellitus with diabetic peripheral angiopathy without gangrene; I25.10 Atherosclerotic heart disease of native coronary artery without angina pectoris; G40.909 Epilepsy, unspecified, not intractable, without status epilepticus; E11.52 Type 2 diabetes mellitus with diabetic peripheral angiopathy with gangrene; I96 Gangrene, not elsewhere classified; E78.5 Hyperlipidemia, unspecified; E78.00 Pure hypercholesterolemia, unspecified; Z79.01 Long term (current) use of anticoagulants; Z79.82 Long term (current) use of aspirin; Z79.899 Other long term (current) drug therapy; Z89.422 Acquired absence of other left toe(s); Z87.891 Personal history of nicotine dependence; Y83.5 Amputation of limb(s) as the cause of abnormal reaction of the patient, or of later complication, without mention of misadventure at the time of the procedure; Y92.238 Other place in hospital as the place of occurrence of the external cause
CPT/HCPCS: G0463; A4450

== ENCOUNTER → 2021-10-28 | Outpatient (CLI) | payer OTHER ==
[~2021-10-28] MED LIST changes: +LIDOCAINE HCL 4% LTA SOL 4 ML VIAL TP ONE
== END | disposition home or self-care (01) ==
LOC: WHH 13:21
PROVIDERS: ATTEND Specialist
DX: T87.89 Other complications of amputation stump (principal); I70.211 Atherosclerosis of native arteries of extremities with intermittent claudication, right leg; E11.65 Type 2 diabetes mellitus with hyperglycemia; E11.51 Type 2 diabetes mellitus with diabetic peripheral angiopathy without gangrene; I25.10 Atherosclerotic heart disease of native coronary artery without angina pectoris; G40.909 Epilepsy, unspecified, not intractable, without status epilepticus; E78.5 Hyperlipidemia, unspecified; E78.00 Pure hypercholesterolemia, unspecified; Z87.891 Personal history of nicotine dependence; Z79.01 Long term (current) use of anticoagulants; Z79.82 Long term (current) use of aspirin; Z79.899 Other long term (current) drug therapy; Z89.422 Acquired absence of other left toe(s); Y83.5 Amputation of limb(s) as the cause of abnormal reaction of the patient, or of later complication, without mention of misadventure at the time of the procedure
CPT/HCPCS: G0463

== ENCOUNTER → 2021-11-11 | Outpatient (CLI) | payer OTHER | END | disposition home or self-care (01) | LOC: WHH 12:45 | PROVIDERS: ATTEND Specialist | DX: T87.89 Other complications of amputation stump (principal); I70.211 Atherosclerosis of native arteries of extremities with intermittent claudication, right leg; E11.65 Type 2 diabetes mellitus with hyperglycemia; E11.42 Type 2 diabetes mellitus with diabetic polyneuropathy; E11.51 Type 2 diabetes mellitus with diabetic peripheral angiopathy without gangrene; I25.10 Atherosclerotic heart disease of native coronary artery without angina pectoris; G40.909 Epilepsy, unspecified, not intractable, without status epilepticus; E78.5 Hyperlipidemia, unspecified; E78.00 Pure hypercholesterolemia, unspecified; Z87.891 Personal history of nicotine dependence; Z79.01 Long term (current) use of anticoagulants; Z79.82 Long term (current) use of aspirin; Z79.899 Other long term (current) drug therapy; Z89.422 Acquired absence of other left toe(s); Y83.5 Amputation of limb(s) as the cause of abnormal reaction of the patient, or of later complication, without mention of misadventure at the time of the procedure | CPT/HCPCS: G0463; A4450 ==

== ENCOUNTER → 2021-11-25 | Outpatient (CLI) | payer OTHER | END | disposition home or self-care (01) | LOC: WHH 12:49 | PROVIDERS: ATTEND Specialist | DX: T87.89 Other complications of amputation stump (principal); I70.211 Atherosclerosis of native arteries of extremities with intermittent claudication, right leg; E11.65 Type 2 diabetes mellitus with hyperglycemia; E11.42 Type 2 diabetes mellitus with diabetic polyneuropathy; E11.51 Type 2 diabetes mellitus with diabetic peripheral angiopathy without gangrene; I25.10 Atherosclerotic heart disease of native coronary artery without angina pectoris; G40.909 Epilepsy, unspecified, not intractable, without status epilepticus; E78.5 Hyperlipidemia, unspecified; E78.00 Pure hypercholesterolemia, unspecified; Z87.891 Personal history of nicotine dependence; Z79.01 Long term (current) use of anticoagulants; Z89.422 Acquired absence of other left toe(s); Z79.82 Long term (current) use of aspirin; Z79.899 Other long term (current) drug therapy; Y83.5 Amputation of limb(s) as the cause of abnormal reaction of the patient, or of later complication, without mention of misadventure at the time of the procedure | CPT/HCPCS: G0463 ==

== ENCOUNTER → 2021-12-09 | Outpatient (CLI) | payer OTHER | END | disposition home or self-care (01) | LOC: WHH 12:52 | PROVIDERS: ATTEND Specialist | DX: T87.89 Other complications of amputation stump (principal); I70.211 Atherosclerosis of native arteries of extremities with intermittent claudication, right leg; E11.65 Type 2 diabetes mellitus with hyperglycemia; E11.42 Type 2 diabetes mellitus with diabetic polyneuropathy; E11.51 Type 2 diabetes mellitus with diabetic peripheral angiopathy without gangrene; I25.10 Atherosclerotic heart disease of native coronary artery without angina pectoris; G40.909 Epilepsy, unspecified, not intractable, without status epilepticus; E78.5 Hyperlipidemia, unspecified; E78.00 Pure hypercholesterolemia, unspecified; Z87.891 Personal history of nicotine dependence; Z79.01 Long term (current) use of anticoagulants; Z89.422 Acquired absence of other left toe(s); Z79.82 Long term (current) use of aspirin; Z79.899 Other long term (current) drug therapy; Y83.5 Amputation of limb(s) as the cause of abnormal reaction of the patient, or of later complication, without mention of misadventure at the time of the procedure | CPT/HCPCS: 17250; A4450 ==

== ENCOUNTER → 2021-12-23 | Outpatient (CLI) | payer OTHER ==
[~2021-12-23] MED LIST changes: -CILO100T PO; +CILO100T3 PO; -LIDOCAINE HCL 4% LTA SOL 4 ML VIAL TP ONE
== END | disposition home or self-care (01) ==
LOC: WHH 13:00
PROVIDERS: ATTEND Specialist
DX: T87.89 Other complications of amputation stump (principal); I70.211 Atherosclerosis of native arteries of extremities with intermittent claudication, right leg; E11.65 Type 2 diabetes mellitus with hyperglycemia; E11.42 Type 2 diabetes mellitus with diabetic polyneuropathy; E11.51 Type 2 diabetes mellitus with diabetic peripheral angiopathy without gangrene; I25.10 Atherosclerotic heart disease of native coronary artery without angina pectoris; G40.909 Epilepsy, unspecified, not intractable, without status epilepticus; E78.5 Hyperlipidemia, unspecified; E78.00 Pure hypercholesterolemia, unspecified; Z87.891 Personal history of nicotine dependence; Z79.01 Long term (current) use of anticoagulants; Z89.422 Acquired absence of other left toe(s); Z79.82 Long term (current) use of aspirin; Z79.899 Other long term (current) drug therapy; Y83.5 Amputation of limb(s) as the cause of abnormal reaction of the patient, or of later complication, without mention of misadventure at the time of the procedure
CPT/HCPCS: G0463

== ENCOUNTER → 2022-01-06 | Outpatient (CLI) | payer OTHER ==
[~2022-01-06] MED LIST changes: +LIDOCAINE HCL 4% LTA SOL 4 ML VIAL TP ONE
== END | disposition home or self-care (01) ==
LOC: WHH 12:50
PROVIDERS: ATTEND Specialist
DX: T87.89 Other complications of amputation stump (principal); I70.211 Atherosclerosis of native arteries of extremities with intermittent claudication, right leg; E11.65 Type 2 diabetes mellitus with hyperglycemia; E11.42 Type 2 diabetes mellitus with diabetic polyneuropathy; E11.51 Type 2 diabetes mellitus with diabetic peripheral angiopathy without gangrene; I25.10 Atherosclerotic heart disease of native coronary artery without angina pectoris; G40.909 Epilepsy, unspecified, not intractable, without status epilepticus; E78.5 Hyperlipidemia, unspecified; E78.00 Pure hypercholesterolemia, unspecified; Z87.891 Personal history of nicotine dependence; Z79.01 Long term (current) use of anticoagulants; Z89.422 Acquired absence of other left toe(s); Z79.82 Long term (current) use of aspirin; Z79.899 Other long term (current) drug therapy; Y83.5 Amputation of limb(s) as the cause of abnormal reaction of the patient, or of later complication, without mention of misadventure at the time of the procedure
CPT/HCPCS: G0463; A4450

== ENCOUNTER → 2022-02-17 | Outpatient (CLI) | payer OTHER ==
[~2022-02-17] MED LIST changes: -LIDOCAINE HCL 4% LTA SOL 4 ML VIAL TP ONE
== END | disposition home or self-care (01) ==
LOC: WHH 12:37
PROVIDERS: ATTEND Specialist
DX: T87.89 Other complications of amputation stump (principal); I70.211 Atherosclerosis of native arteries of extremities with intermittent claudication, right leg; E11.51 Type 2 diabetes mellitus with diabetic peripheral angiopathy without gangrene; E11.65 Type 2 diabetes mellitus with hyperglycemia; E11.42 Type 2 diabetes mellitus with diabetic polyneuropathy; I25.10 Atherosclerotic heart disease of native coronary artery without angina pectoris; G40.909 Epilepsy, unspecified, not intractable, without status epilepticus; E78.5 Hyperlipidemia, unspecified; E78.00 Pure hypercholesterolemia, unspecified; Z87.891 Personal history of nicotine dependence; Z79.01 Long term (current) use of anticoagulants; Z89.422 Acquired absence of other left toe(s); Z79.82 Long term (current) use of aspirin; Z79.899 Other long term (current) drug therapy; Y83.5 Amputation of limb(s) as the cause of abnormal reaction of the patient, or of later complication, without mention of misadventure at the time of the procedure
CPT/HCPCS: G0463